=== PATIENT | female | born 1930 | race Caucasian/White ===

== ENCOUNTER 2017-10-11 03:18 | Emergency (ER) | payer MEDICARE, OTHER ==
[2017-10-11 03:29] VITALS: BP 166/107
[2017-10-11] MEDS ORDERED: IBUPROFEN 400 MG TABLET PO STA (03:36)
[2017-10-11] MEDS ORDERED: ACETAMINOPHEN 325 MG TABLET PO STA (03:36)
--- NOTE | 2017-10-11 04:13 | ED Physician Documentation ---
History of Present Illness - Stated complaint Stated Complaint: FALL - Chief complaint Chief Complaint: Ext Problem - History obtained from History obtained from: Patient, Family - History of Present Illness Timing: Today, How many hours ago (12) Pain level max: 8 Pain level now: 6 Improved by: rest Worsened by: movement - Additonal information Additional information: Patient is an 87-year-old female who fell off of a swivel chair at home approximately 12 hours ago and landed on her right shoulder and right ribs. Did not strike her head. No loss of consciousness. No headache. No complaints of pain to the right shoulder and right ribs. Has not taken anything for pain at home. No chest pain or difficulty breathing. No vomiting. No altered mental status. No back pain. No numbness or tingling. Review of Systems Eyes: denies: Decreased vision Nose: denies: Rhinorrhea / runny nose, Congestion, Epistaxis Cardiac: denies: Chest pain / pressure Respiratory: denies: Dyspnea, Cough, Wheezing GI: denies: Abdominal Pain, Vomiting Skin: denies: Rash Musculoskeletal: denies: Neck pain, Back pain Neurologic: denies: Focal weakness, Numbness, Seizure, Confused, Altered mental status, Headache, Head injury, LOC PD PAST MEDICAL HISTORY - Past Medical History Past Medical History: Yes Cardiovascular: Hypertension Endocrine/Autoimmune: HyPOthyroidism GI: GERD Other Past Medical History: tremors - Past Surgical History General: Cholecystectomy - Present Medications Home Medications: Ambulatory Orders Medication Instructions Recorded Confirmed Ca/D3/Mag#11/Zinc/Gas Plumber/Edgar/Bor 1 tab PO DAILY 10/11/17 10/11/17 [Caltrate 600+D Plus Tablet] Esomeprazole Magnesium [Nexium] 40 mg PO DAILY 10/11/17 10/11/17 Lactobacillus Acidophilus 1 tab PO DAILY 10/11/17 10/11/17 [Probiotic Acidophilus] Levothyroxine [Synthroid] 75 mcg PO DAILY 10/11/17 10/11/17 Losartan [Cozaar] 50 mg PO DAILY 10/11/17 10/11/17 Multivitamin/Iron/Folic Acid 1 tab PO DAILY 10/11/17 10/11/17 [Centrum Adults Tablet] [place]-3/Dha/Epa/Fish Oil [Fish Oil 1,000 mg PO DAILY 10/11/17 10/11/17 1,000 mg Softgel] Pramipexole Di-HCl [Mirapex] 0.125 mg PO DAILY 10/11/17 10/11/17 Pramipexole [Mirapex] 0.25 mg PO DAILY 10/11/17 10/11/17 - Allergies Allergies/Adverse Reactions: Allergies Allergy/AdvReac Type Severity Reaction Status Date / Time codeine Allergy Rash Verified 10/11/17 03:31 morphine Allergy Rash Verified 10/11/17 03:31 naproxen [From Naprosyn] Allergy Rash Verified 10/11/17 03:31 aspirin AdvReac Nausea Verified 10/11/17 03:31 - Social History Does the pt smoke?: No Smoking Status: Never smoker Does the pt drink ETOH?: No Does the pt have substance abuse?: No - Immunizations Immunizations are current?: Yes PD ED PE NORMAL - Vitals Vital signs reviewed: Yes - General General: Alert and oriented X 3, No acute distress - HEENT HEENT: Atraumatic, PERRL, EOMI, Ears normal, Moist mucous membranes, Pharynx benign - Neck Neck: Supple, no meningeal sign, No bony TTP - Cardiac Cardiac: RRR - Respiratory Respiratory: No respiratory distress, Clear bilaterally - Abdomen Abdomen: Soft, Non tender, Non distended - Back Back: No spinal TTP - Derm Derm: Warm and dry - Extremities Extremities: Other (TTP over the R AC joint and R ribs diffusely over the mid axillary line. NVI. no ecchymosis. no crepitus. no deformity of the shoulder or upper arm. ) - Neuro Neuro: Alert and oriented X 3, financial associate 2-12 intact, No motor deficit, No sensory deficit, Normal speech - Psych Psych: Normal mood, Normal affect Results - Vitals Vitals: Vital Signs - 24 hr 10/11/17 03:26 Temperature 36.6 C Heart Rate 82 Respiratory 18 Rate Blood Pressure 166/107 H O2 Saturation 96 - Rads (name of study) R ribs with cxr Radiology: Prelim report reviewed, EMP read contemporaneously, See rad report ( No displaced rib fracture or complication from rib fracture seen. Suspect COPD. Cardiomegaly.) R shoulder xray Radiology: Prelim report reviewed, EMP read contemporaneously, See rad report ( No acute bony abnormality) PD MEDICAL DECISION MAKING - ED course Complexity details: reviewed results, re-evaluated patient, considered differential, d/w patient, d/w family ED course: Patient is an 87-year-old female who presents to the emergency department after a fall off of a swiveling chair approximately 12 hours prior to arrival. Given Motrin and Tylenol here. Feels significantly improved. Placed in a sling for comfort, likely mild AC sprain. Also likely bony contusions of her ribs. No evidence of pneumo or hemothorax. No other acute injuries. No headache. No loss of consciousness. No neck or back pain. Ambulating well. Patient and family counseled regarding signs and symptoms for which I believe and urgent re- evaluation would be necessary. Patient with good understanding of and agreement to plan and is comfortable going home at this time This document was made in part using voice recognition software. While efforts are made to proofread this document, sound alike and grammatical errors may occur. Departure - Departure Disposition: 01 Home, Self Care Clinical Impression: Sprain of shoulder, right Qualifiers: Encounter type: initial encounter Shoulder sprain type: unspecified sprain Qualified Code(s): S43.401A - Unspecified sprain of right shoulder joint, initial encounter Contusion of rib on right side Qualifiers: Encounter type: initial encounter Qualified Code(s): S20.211A - Contusion of right front wall of thorax, initial encounter Condition: Good Instructions: ED Sprain Shoulder, ED Contusion Vs Minor Fx Rib Follow-Up: your,doctor in 1 week [Other] Comments: Use the sling for comfort. Return if you worsen. Your xrays are normal today. You can use motrin and tylenol for pain.
--- NOTE | 2017-10-11 04:48 | XRAY Preliminary Report ---
Exam: XR SHOULDER 3 VIEW RT IMPRESSION: No right shoulder fracture or dislocation seen. [facility] SITE ID: [id number]
--- NOTE | 2017-10-11 04:50 | XRAY Preliminary Report ---
Exam: XR RIBS W/PA CHEST RT IMPRESSION: 1. No displaced rib fracture or complication from rib fracture seen. 2. Suspect COPD. 3. Cardiomegaly. [facility] SITE ID: [id number]
--- NOTE | 2017-10-11 05:01 | XRAY Report ---
EXAM: RIGHT RIB RADIOGRAPHY EXAM DATE: 10/11/2017 03:48 AM. CLINICAL HISTORY: Fall, right rib pain. COMPARISON: None. TECHNIQUE: 1 view of the chest and 2 views of the ribs. FINDINGS: Bones: No displaced rib fracture seen. Old left humeral fracture. Lungs: Coarse chronic interstitial markings. No gross pneumothorax or large effusion. Mediastinum: Mild cardiomegaly. No mediastinal shift. Other: None. IMPRESSION: 1. No displaced rib fracture or complication from rib fracture seen. 2. Suspect COPD. 3. Cardiomegaly. [facility] Referring Provider Line: [phone] SITE ID: [id number]
--- NOTE | 2017-10-11 05:01 | XRAY Report ---
EXAM: RIGHT SHOULDER RADIOGRAPHY EXAM DATE: 10/11/2017 03:48 AM. CLINICAL HISTORY: Fall, right shoulder pain. COMPARISON: None. TECHNIQUE: 5 views. FINDINGS: Bones: Normal. No fracture or bone lesion. Joints: The glenohumeral and acromioclavicular joints are normally aligned. Mild acromioclavicular de generative changes. No significant glenohumeral degenerative changes. Soft tissues: The visualized hemithorax is unremarkable. No soft tissue swelling. IMPRESSION: No right shoulder fracture or dislocation seen. [facility] Referring Provider Line: [phone] SITE ID: [id number]
== END 2017-10-11 05:15 | disposition home or self-care (01) ==
LOC: ED 03:18
DX: S43.401A Unspecified sprain of right shoulder joint, initial encounter (principal); S20.211A Contusion of right front wall of thorax, initial encounter; W07.XXXA Fall from chair, initial encounter; Y92.009 Unspecified place in unspecified non-institutional (private) residence as the place of occurrence of the external cause; I10 Essential (primary) hypertension; E03.9 Hypothyroidism, unspecified
CPT/HCPCS: 71101; 73030; 99283; A9270

== ENCOUNTER 2017-10-18 11:17 | Outpatient (CLI) | payer MEDICARE, OTHER ==
--- NOTE | 2017-10-19 16:26 | Ultrasound Report ---
LEFT NECK VASCULAR ULTRASOUND: 10/18/2017 COMPARISON: No comparison. INDICATION: Prominent left jugular vein clinically. TECHNIQUE: Sonographic evaluation of the left neck vascular structures. FINDINGS: At the area of concern, there is a visually and palpably present lump. There is a prominent vein, which is adjacent to the internal jugular vein, and is favored to represent anatomic variation or varix. It connects to the subclavian vein. Sonographic evaluation from the finding across the subclavian vein down to the antecubital fossa shows no evidence of thrombosis. Arterial evaluation is limited, but grossly unremarkable. IMPRESSION: ACCESSORY VEIN/VARIX ACCOUNTS FOR THE CLINICAL FINDINGS. NO VENOUS THROMBOSIS. TD: 10/18/2017 13:40 GRAYSON
== END 2017-10-18 11:18 | disposition home or self-care (01) ==
LOC: DI 11:17
PROVIDERS: ATTEND Family Medicine
DX: I87.8 Other specified disorders of veins (principal)

== ENCOUNTER 2018-04-09 12:48 | Emergency (ER) | payer MEDICARE, OTHER ==
--- NOTE | 2018-04-09 14:16 | ED Physician Documentation ---
PD HPI LOWER EXT INJURY - Stated complaint Stated Complaint: HIP PX - Chief complaint Chief Complaint: Ext Problem - History obtained from History obtained from: Patient - History of Present Illness PD HPI LOW EXT INJURY LOCATION: Right, Hip (posteriorly, at SI area.) Type of injury: Twist. No: Fall Timing - onset: How many days ago (2-3) Timing - duration: Days Timing - details: Gradual onset, Still present Worsened by: Moving Associated symptoms: No: Weakness, Numbness, Swelling Contributing factors: No: Anticoagulated Similar symptoms before: Has not had sx before Review of Systems Constitutional: denies: Fever, Chills Nose: denies: Rhinorrhea / runny nose, Congestion Throat: denies: Sore throat Respiratory: denies: Cough GI: denies: Abdominal Pain, Nausea, Vomiting, Diarrhea Skin: denies: Rash, Lesions PD PAST MEDICAL HISTORY - Past Medical History Past Medical History: Yes Cardiovascular: Hypertension Endocrine/Autoimmune: HyPOthyroidism GI: GERD - Past Surgical History Past Surgical History: Yes General: Cholecystectomy - Present Medications Home Medications: Ambulatory Orders Medication Instructions Recorded Confirmed Ca/D3/Mag#11/Zinc/Rehab Office Coordinator/Edgar/Bor 1 tab PO DAILY 10/11/17 10/11/17 [Caltrate 600+D Plus Tablet] Lactobacillus Acidophilus 1 tab PO DAILY 10/11/17 10/11/17 [Probiotic Acidophilus] Multivitamin/Iron/Folic Acid 1 tab PO DAILY 10/11/17 10/11/17 [Centrum Adults Tablet] [place]-3/Dha/Epa/Fish Oil [Fish Oil 1,000 mg PO DAILY 10/11/17 10/11/17 1,000 mg Softgel] Pramipexole Di-HCl [Mirapex] 0.125 mg PO DAILY 10/11/17 10/11/17 Pramipexole [Mirapex] 0.25 mg PO DAILY 10/11/17 10/11/17 RX: Levothyroxine [Synthroid] 75 mcg PO DAILY 10/11/17 10/11/17 RX: Losartan [Cozaar] 50 mg PO DAILY 10/11/17 10/11/17 RX: Ibuprofen 400 mg PO BID #30 tablet 04/09/18 RX: Lidocaine Patch 5% [Lidoderm 1 each TOP DAILY #10 patch 04/09/18 Patch] RX: Pantoprazole [Protonix] 04/09/18 - Allergies Allergies/Adverse Reactions: Allergies Allergy/AdvReac Type Severity Reaction Status Date / Time codeine Allergy Rash Verified 04/09/18 12:58 morphine Allergy Rash Verified 04/09/18 12:58 naproxen [From Naprosyn] Allergy Rash Verified 04/09/18 12:58 aspirin AdvReac Nausea Verified 04/09/18 12:58 - Social History Does the pt smoke?: No Smoking Status: Never smoker Does the pt drink ETOH?: No Does the pt have substance abuse?: No - Immunizations Immunizations are current?: Yes PD ED PE NORMAL - Vitals Vital signs reviewed: Yes - General General: Alert and oriented X 3, No acute distress, Well developed/nourished - Cardiac Cardiac: RRR, No murmur - Respiratory Respiratory: Clear bilaterally - Abdomen Abdomen: Normal bowel sounds, Soft, Non tender, Non distended - Back Back: Other (tender in muscles at RIght SI area. No rash nor sores. ) - Derm Derm: Normal color, Warm and dry - Extremities Extremities: No tenderness to palpate, Normal ROM s pain, No edema, No calf tenderness / cord - Neuro Neuro: Alert and oriented X 3, No motor deficit, No sensory deficit, Normal speech Results - Vitals Vitals: Oxygen O2 Source Room air PD MEDICAL DECISION MAKING - ED course Complexity details: reviewed results, considered differential, d/w patient Departure - Departure Disposition: 01 Home, Self Care Clinical Impression: SI joint arthritis Acute low back pain Qualifiers: Back pain laterality: right Sciatica presence: without sciatica Qualified Code(s): M54.5 - Low back pain Condition: Stable Record reviewed to determine appropriate education?: Yes Instructions: ED Low Back Pain Injury Follow-Up: Jarrett Yousif DO [Primary Care Provider] - Prescriptions: RX: Ibuprofen 400 mg PO BID #30 tablet RX: Lidocaine Patch 5% [Lidoderm Patch] 1 each TOP DAILY #10 patch Comments: Use ibuprofen 400 mg twice daily for the next 5-7 days. Take it with food. Add Tylenol 500 mg 4 times a day for pain. Use the lidocaine patches to the area that hurts. Recheck if not better over the next few days or if you develop other symptoms such as rash fever skin sores or leg weakness. Discharge Date/Time: 04/09/18 16:15
--- NOTE | 2018-04-09 14:57 | XRAY Report ---
Reason: rt hip pain Procedure Date: 04/09/2018 Accession Number: [id number] / [id number] Procedure: XR - Hip w/Pelvis 2-3V RT CPT Code: FULL RESULT: EXAM: RIGHT HIP AND PELVIS RADIOGRAPHY EXAM DATE: 04/09/2018 02:27 PM. HISTORY: Rt hip pain. COMPARISONS: None. TECHNIQUE: 1 view of the pelvis and 1 view of the hip. FINDINGS: Bones: Normal. No fracture or bone lesion. Joints: The bilateral hip, pubis symphysis, and sacroiliac joints are preserved. Soft Tissues: There is moderate volume stool projecting of the low abdomen and pelvis. IMPRESSION: 1. No evidence of fracture or dislocation. Plain film can be insensitive for detection of hip fracture in elderly patients. If there is concern for occult proximal femur fracture, MRI could be used for further evaluation. 2. No significant degenerative disease. 3. There is stool projecting over the low abdomen and pelvis [facility]
[2018-04-09] MEDS ORDERED: IBUPROFEN 400 MG TABLET PO STA (15:34)
[2018-04-09] MEDS ORDERED: ACETAMINOPHEN 325 MG TABLET PO STA (15:34)
[2018-04-09] MEDS ORDERED: TRIAMCINOLONE 40 MG/ML VIAL IM STA (15:34)
[2018-04-09] MEDS ORDERED: LIDOCAINE PATCH 5% TOP STA (15:35)
[2018-04-09 17:27] VITALS: BP 170/88
== END 2018-04-09 16:15 | disposition home or self-care (01) ==
LOC: ED 12:48
DX: M46.1 Sacroiliitis, not elsewhere classified (principal); M54.5 Low back pain; I10 Essential (primary) hypertension
CPT/HCPCS: 73502; 99283; A9270

== ENCOUNTER → 2020-02-17 | Outpatient (CLI) | payer MEDICARE, OTHER ==
[2020-02-17 18:06] LABS: BASOPHILS % (AUTO) 0.3 %; EOSINOPHILS # (AUTO) 0.1 10^3/uL (0.0-0.7); EOSINOPHILS % (AUTO) 1.7 %; HGB - HEMOGLOBIN 11.3 g/dL (12.0-16.0); LYMPHOCYTES # (AUTO) 1.9 10^3/uL (1.5-3.5); LYMPHOCYTES % (AUTO) 32.5 %; MEAN CORPUSCULAR HEMOGLOBIN 30.1 pg (27.0-31.0); MEAN CORPUSCULAR HGB CONC 32.8 g/dL (32.0-36.0); MEAN CORPUSCULAR VOLUME 91.8 fL (81.0-99.0); MEAN PLATELET VOLUME 10.1 fL (7.9-10.8); MONOCYTES # (AUTO) 0.4 10^3/uL (0.0-1.0); NEUTROPHILS # (AUTO) 3.4 10^3/uL (1.5-6.6); NEUTROPHILS % (AUTO) 58.3 %; PLT - PLATELET COUNT 220 10^3/uL (130-450); RED BLOOD COUNT 3.76 10^6/uL (4.20-5.40); RED CELL DISTRIBUTION WIDTH 13.2 % (12.0-15.0); WHITE BLOOD COUNT 5.8 x10^3/uL (4.8-10.8)
[2020-02-17 18:46] LABS: ALBUMIN 4.2 g/dL (3.2-5.5); ALBUMIN/GLOBULIN RATIO 1.6 (1.0-2.2); ALKALINE PHOSPHATASE 62 IU/L (42-121); ALT ALANINE AMINOTRANSFERASE 24 IU/L (10-60); AST ASPARTATE AMINOTRANSFERASE 30 IU/L (10-42); BILIRUBIN,TOTAL 1.2 mg/dL (0.2-1.0); BUN - BLOOD UREA NITROGEN 18 mg/dL (6-20); CALCIUM 9.5 mg/dL (8.5-10.3); CARBON DIOXIDE - CO2 27 mmol/L (21-32); CHLORIDE 98 mmol/L (101-111); CHOLESTEROL 246 mg/dL; CREATININE 0.7 mg/dL (0.4-1.0); GLUCOSE 89 mg/dL (70-100); HDL CHOLESTEROL 61 mg/dL; LDL CHOLESTEROL,CALCULATED 169 mg/dL; LDL/HDL RATIO 2.8 (<4.4); SODIUM 133 mmol/L (135-145); TOTAL PROTEIN 6.8 g/dL (6.7-8.2); VLDL CHOLESTEROL 16 mg/dL
[2020-02-17 18:49] LABS: FREE T3 2.72 pg/mL (2.5-3.9)
[2020-02-17 18:50] LABS: THYROID STIMULATING HORMONE 0.13 uIU/mL (0.34-5.60)
[2020-02-17 18:52] LABS: FREE T4 (FREE THYROXINE) 1.37 ng/dL (0.58-1.64)
== END ==
LOC: LAB.WCP 11:14
PROVIDERS: ATTEND Family Medicine
DX: I10 Essential (primary) hypertension (principal); E03.9 Hypothyroidism, unspecified; E78.2 Mixed hyperlipidemia; I48.91 Unspecified atrial fibrillation; M10.9 Gout, unspecified
CPT/HCPCS: 36415; 80053; 80061; 83721; 84439; 84443; 84481; 85025

== ENCOUNTER 2020-12-20 09:43 | Outpatient (CLI) | payer MEDICARE, OTHER ==
[2020-12-20 13:38] LABS: THYROID STIMULATING HORMONE 0.59 uIU/mL (0.34-5.60)
[2020-12-20 13:40] LABS: FREE T3 2.56 pg/mL (2.5-3.9); FREE T4 (FREE THYROXINE) 1.17 ng/dL (0.58-1.64)
== END 2020-12-20 23:59 | disposition home or self-care (01) ==
LOC: LAB.WCP 09:43
PROVIDERS: ATTEND Family Medicine
DX: E03.9 Hypothyroidism, unspecified (principal)
CPT/HCPCS: 36415; 84439; 84443; 84481

== ENCOUNTER 2021-06-17 08:00 | Outpatient (CLI) | payer MEDICARE, OTHER ==
[2021-06-17 17:47] LABS: BASOPHILS % (AUTO) 0.2 %; EOSINOPHILS % (AUTO) 0.6 %; HCT - HEMATOCRIT 39.2 % (37.0-47.0); HGB - HEMOGLOBIN 12.9 g/dL (12.0-16.0); LYMPHOCYTES # (AUTO) 1.3 10^3/uL (1.5-3.5); LYMPHOCYTES % (AUTO) 25.7 %; MEAN CORPUSCULAR HEMOGLOBIN 29.5 pg (27.0-31.0); MEAN CORPUSCULAR HGB CONC 32.9 g/dL (32.0-36.0); MEAN CORPUSCULAR VOLUME 89.5 fL (81.0-99.0); MEAN PLATELET VOLUME 10.9 fL (7.9-10.8); MONOCYTES # (AUTO) 0.4 10^3/uL (0.0-1.0); MONOCYTES % (AUTO) 7.4 %; NEUTROPHILS # (AUTO) 3.4 10^3/uL (1.5-6.6); NEUTROPHILS % (AUTO) 65.9 %; PLT - PLATELET COUNT 211 10^3/uL (130-450); RED BLOOD COUNT 4.38 10^6/uL (4.20-5.40); WHITE BLOOD COUNT 5.1 x10^3/uL (4.8-10.8)
[2021-06-17 17:50] LABS: SLIDE REVIEW? Indicated
[2021-06-17 18:20] LABS: ALBUMIN 3.9 g/dL (3.2-5.5); ALBUMIN/GLOBULIN RATIO 1.2 (1.0-2.2); ALKALINE PHOSPHATASE 75 IU/L (42-121); ALT ALANINE AMINOTRANSFERASE 24 IU/L (10-60); AST ASPARTATE AMINOTRANSFERASE 30 IU/L (10-42); BUN - BLOOD UREA NITROGEN 18 mg/dL (6-20); CALCIUM 9.9 mg/dL (8.5-10.3); CARBON DIOXIDE - CO2 27 mmol/L (21-32); CHLORIDE 100 mmol/L (101-111); CHOL/HDL RATIO 3.3 (<4.4); CHOLESTEROL 247 mg/dL; CREATININE 0.6 mg/dL (0.4-1.0); GFR - MDRD 94 (>89); GLUCOSE 76 mg/dL (70-100); HDL CHOLESTEROL 74 mg/dL; LDL CHOLESTEROL,CALCULATED 156 mg/dL; LDL/HDL RATIO 2.1 (<4.4); SODIUM 138 mmol/L (135-145); TOTAL PROTEIN 7.1 g/dL (6.7-8.2); TRIGLYCERIDES 84 mg/dL; VLDL CHOLESTEROL 17 mg/dL
[2021-06-17 18:22] LABS: PLATELET ESTIMATE, MANUAL NORMAL (130-450,000) (NORMAL); PLATELET MORPHOLOGY 1+ GIANT PLATELETS (NORMAL)
[2021-06-17 18:30] LABS: THYROID STIMULATING HORMONE 0.58 uIU/mL (0.34-5.60)
[2021-06-17 18:32] LABS: FREE T3 2.69 pg/mL (2.5-3.9); FREE T4 (FREE THYROXINE) 1.1 ng/dL (0.58-1.64)
== END 2021-06-17 23:59 ==
LOC: LAB.WCP 08:00
PROVIDERS: ATTEND Family Medicine
DX: G25.0 Essential tremor (principal); E03.9 Hypothyroidism, unspecified; E78.2 Mixed hyperlipidemia; I48.91 Unspecified atrial fibrillation; I10 Essential (primary) hypertension
CPT/HCPCS: 36415; 80053; 80061; 83721; 84439; 84443; 84481; 85025